=== PATIENT | male | born 1990 | race Caucasian/White ===

== ENCOUNTER 2017-12-25 22:27 | Emergency (ER) | payer OTHER ==
[~2017-12-25] VITALS: Ht 182.9 cm; Wt 113.6 kg
[2017-12-26] MEDS ORDERED: NORCO 7.5/321 TABLET PO (00:05)
[2017-12-26] MEDS ORDERED: MOTRIN800 MG PO (00:05)
[2017-12-26 00:41] VITALS: BP 120/81
== END 2017-12-26 00:42 | disposition home or self-care (01) ==
LOC: EME 22:27
DX: S56.911A Strain of unspecified muscles, fascia and tendons at forearm level, right arm, initial encounter (principal); S20.211A Contusion of right front wall of thorax, initial encounter; S50.11XA Contusion of right forearm, initial encounter; M25.531 Pain in right wrist; W00.0XXA Fall on same level due to ice and snow, initial encounter
CPT/HCPCS: 71101; 73090; 73110; 99281; 99284